=== PATIENT | female | born 1960 | race African-American/Black ===

== ENCOUNTER 2023-05-26 14:28 | Emergency (ER) | payer OTHER ==
[2023-05-26 15:40] LABS: BASO % 0.6 % (0.0-1.0); EOS # 0.1 10*3/uL (0.0-0.4); EOS % 1.1 % (1.0-4.0); HEMATOCRIT 28.5 % (37.0-47.0); LYMPH # 1.3 10*3/uL (1.3-4.4); LYMPH % 20.9 % (27.0-41.0); MEAN CELL VOLUME 102.9 fl (81.0-99.0); MEAN CORPUSCULAR HGB 32.5 pg (27.0-31.0); MEAN CORPUSCULAR HGB CONC 31.6 g/dl (33.0-37.0); MEAN PLATELET VOLUME 10.3 fl (9.6-12.3); MONO # 0.5 10*3/uL (0.1-1.0); MONO % 7.2 % (3.0-9.0); NEUT # 4.4 10*3/uL (2.3-7.9); NEUT % 69.7 % (47.0-73.0); PLATELET COUNT AUTOMATED 225 10*3/uL (130-400); RED BLOOD COUNT 2.77 10*6/uL (4.10-5.10); RED CELL DISTRI WIDTH 14.7 % (0-14.5); WHITE BLOOD COUNT 6.4 10*3/uL (4.8-10.8)
[2023-05-26 15:54] LABS: ACT PARTIAL THROMBO TIME 31.5 SECONDS (20.0-32.1); INTERNATIONAL NORM RATIO 1.1 (2.0-3.5)
[2023-05-26 16:06] LABS: POTASSIUM 4.1 mmol/L (3.4-5.1); TOTAL PROTEIN 5.3 gm/dL (6.0-8.0)
[2023-05-26 16:08] LABS: BILIRUBIN Negative (Negative); BLOOD Trace-Intact (Negative); CLARITY Cloudy (Clear); COLOR Yellow (Yellow); GLUCOSE Negative (Negative); KETONE Trace (Negative); LEUKO ESTERASE 2+ (Negative); NITRITE Positive (Negative); SPECIFIC GRAVITY 1.015 (1.001-1.030)
[2023-05-26 16:15] LABS: URINE AMPHETAMINES Negative (1000ng/ml); URINE BARBITURATES Negative (200ng/ml); URINE BENZODIAZEPINES Negative (200ng/ml); URINE CANNABINOIDS (THC) Positive (50ng/ml); URINE COCAINE Negative (300ng/ml); URINE METHADONE Negative (300ng/ml); URINE OPIATES Negative (300ng/ml); URINE PHENCYCLIDINE Negative (25ng/ml)
[2023-05-26 16:25] LABS: BACTERIA 3+; WBC 41-50 wbc/hpf (0-5)
== END 2023-05-27 22:31 | disposition short-term general hospital (02) ==
LOC: ED 14:28
PROVIDERS: Emergency Medicine
DX: F29 Unspecified psychosis not due to a substance or known physiological condition (principal); Z20.822 Contact with and (suspected) exposure to COVID-19; N39.0 Urinary tract infection, site not specified; N18.4 Chronic kidney disease, stage 4 (severe); D53.9 Nutritional anemia, unspecified; E43 Unspecified severe protein-calorie malnutrition; Z88.1 Allergy status to other antibiotic agents; Z88.5 Allergy status to narcotic agent; Z91.013 Allergy to seafood; Z91.040 Latex allergy status; Z88.8 Allergy status to other drugs, medicaments and biological substances; Z91.048 Other nonmedicinal substance allergy status; Z88.6 Allergy status to analgesic agent